=== PATIENT | female | born 1995 | race African-American/Black ===

== ENCOUNTER 2017-03-09 15:11 | Emergency (ER) | payer OTHER ==
--- NOTE | 2017-03-09 15:58 | ED Physician Documentation ---
Skin Rash - HISTORIAN Historian: patient - HPI Stated Complaint: rash Chief Complaint: Skin Rash Additional Information: pruritic plaques, various places, legs arms, upper back, better with cool compresses. Onset: days ago Timing: still present Duration: persistent since Location: trunk, RUE, LUE, RLE, LLE Quality: itchy Identified Cause?: No Context: Medication Exposure: none Context: Food Exposure: none Context: Other Exposure: denies: bee sting, poison aldair, poison oak, infectious illness, detergent Further Comments: no - ROS CONST: no problems (she is ) CVS/RESP: none EYES/ENT: none GI/: none MS/SKIN/LYMPH: none NEURO/PSYCH: none - PAST HX Past History: none Other History: none Surgeries/Procedures: No Allergies/Adverse Reactions: Allergies Allergy/AdvReac Type Severity Reaction Status Date / Time No Known Allergies Allergy Verified 03/09/17 15:20 Home Medications: Ambulatory Orders Medication Instructions Recorded Pnv95/Ferrous Fumarate/FA 1 each PO QDAY 03/09/17 [ Caplet] - SOCIAL HX Smoking History: non-smoker Alcohol Use: none Drug Use: none - FAMILY HX Family History: none - VITAL SIGNS Vital Signs: Vital Signs Temp Pulse Resp BP Pulse Ox 98.5 F 86 16 109/73 98 03/09/17 15:15 03/09/17 15:15 03/09/17 15:15 03/09/17 15:15 03/09/17 15:15 - REVIEWED ASSESSMENTS Nursing Assessment Reviewed: Yes Vitals Reviewed: Yes Skin Rash Physical Exam - EXAM General Appearance: no acute distress, alert Skin: warm,dry, skin rash (various places, pruritic, not impressive in appearance. looks like heat rash.) Location: posterior neck, trunk, extremities Character: asymmetric, maculopapular, fine, patchy Symptoms: rough texture. No: warmth, tenderness, swelling, induration, thickening, scaling, well defined border, weeping Extremities: nml ROM EENT: lips nml, pharynx nml Neck: trachea midline, no swelling Respiratory: no resp distress Abdomen: non-tender Neuro/Psych: oriented x3, mood/affect nml Discharge Clincal Impression: Pruritic rash Referrals: Beth Chavez MD [Primary Care Provider] - 2 Days Home Medications: Ambulatory Orders Pnv95/Ferrous Fumarate/FA [ Caplet] 1 each PO QDAY 03/09/17 Condition: Good Disposition: 01 HOME, SELF-CARE Decision to Admit: NO Date of Decison to Admit: 03/09/17 Decision Time: 15:57
[2017-03-09 16:05] VITALS: BP 108/72
== END 2017-03-09 16:00 | disposition home or self-care (01) ==
LOC: ED 15:11
DX: R21 Rash and other nonspecific skin eruption (principal)
CPT/HCPCS: 99283

== ENCOUNTER 2017-11-24 14:18 | Outpatient (CLI) | payer OTHER ==
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
== END 2017-11-24 14:20 ==
LOC: RAD 14:18
PROVIDERS: ATTEND Family Medicine
DX: M25.561 Pain in right knee (principal); M25.562 Pain in left knee; M25.572 Pain in left ankle and joints of left foot
CPT/HCPCS: 73610

== ENCOUNTER 2018-02-20 15:27 | Emergency (ER) | payer OTHER ==
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
[2018-02-20] MEDS: 0.9 % SODIUM CHLORIDE 1,000 ML IV ONE ×2 (16:00→16:27)
[2018-02-20] MEDS: KETOROLAC TROMETHAMINE 30 MG/1ML VIAL IVP ONE (16:10)
[2018-02-20] MEDS: ORPHENADRINE CITRATE 60 MG/2ML IV ONE (16:10)
[2018-02-20] MEDS: diphenhydrAMINE HCL 50 MG/ML VIAL IVP ONE (16:12)
[2018-02-20] MEDS: PROMETHAZINE HCL 25 MG/ML VIAL ONE (16:46)
[2018-02-20] MEDS: PROMETHAZINE HCL 25 MG in 0.9 % SODIUM CHLORIDE 50 ML IV ONE (16:48)
[2018-02-20 17:20] VITALS: BP 108/57
== END 2018-02-20 17:17 | disposition home or self-care (01) ==
LOC: ED 15:27
DX: R51 Headache (principal); R11.10 Vomiting, unspecified
CPT/HCPCS: J1200; J1885; J2360; J2550; J7030; 96365; 96375; 99284; S1016